=== PATIENT | male | born 2000 | race Caucasian/White ===

== ENCOUNTER 2024-09-05 14:24 | Emergency (ER) | payer OTHER ==
[~2024-09-05] VITALS: Ht 177.8 cm; Wt 78.5 kg
[2024-09-05 14:33] VITALS: TEMP 98.5
[2024-09-05] MEDS ORDERED: IOHEXOL-300 100 ML VIAL IV ONE (15:00)
[2024-09-05] MEDS ORDERED: IV NS 0.9% 250 ML IV ONE (15:00)
[2024-09-05 15:27] LABS: ERYTHROCYTE SEDIMENTATION RATE 5 MM/HR (0-15)
[2024-09-05 15:30] LABS: BASOPHILS % (AUTO) 0.5 % (0.0-2.0); EOSINOPHILS # (AUTO) 0.1 K/uL (0.0-0.7); EOSINOPHILS % (AUTO) 1.6 % (0.0-6.0); HEMATOCRIT 42 % (39-51); HEMOGLOBIN 14.6 g/dL (13.5-17.5); LYMPHOCYTES # (AUTO) 1.5 K/uL (0.8-4.8); LYMPHOCYTES % (AUTO) 20.3 % (20.0-44.0); MEAN CORPUSCULAR HEMOGLOBIN 28 PG (26.0-33.0); MEAN CORPUSCULAR HGB CONC 35 g/dl (31.0-36.0); MEAN CORPUSCULAR VOLUME 81 fL (80-96); MONOCYTES # (AUTO) 0.8 K/uL (0.1-1.30); MONOCYTES % (AUTO) 11.3 % (2.0-12.0); NEUTROPHILS # (AUTO) 4.8 K/uL (1.8-8.9); NEUTROPHILS % (AUTO) 66.3 % (43.0-81.0); PLATELET COUNT (AUTO) 275 K/uL (150-450); RED BLOOD CELL COUNT(AUTO) 5.21 MIL/uL (4.5-6.0); WHITE BLOOD COUNT (AUTO) 7.3 K/uL (4.3-11.0)
[2024-09-05 15:41] LABS: CALCIUM, SERUM 9.1 mg/dL (8.5-10.1); CREATININE 0.6 mg/dL (0.6-1.3); POTASSIUM 4.5 mmol/L (3.5-5.1)
[2024-09-05] MEDS ORDERED: AMOX-430 PO (16:43)
[2024-09-05 16:53] VITALS: BP 120/75; O2SAT 100
[2024-09-06 05:16] LABS: C-REACTIVE PROTEIN 2.15 mg/dL (0.0-0.30)
== END 2024-09-05 16:54 | disposition home or self-care (01) ==
LOC: ER 14:28
DX: K11.20 Sialoadenitis, unspecified (principal); R22.0 Localized swelling, mass and lump, head; G50.1 Atypical facial pain
CPT/HCPCS: 99285; 70487; 85025; 80048; 85652; 36415; 86140; J7050; Q9967